=== PATIENT | female | born 2000 | race Caucasian/White ===

== ENCOUNTER 2020-06-26 18:03 | Emergency (ER) | payer BC, SELFPAY ==
--- NOTE | 2020-06-26 18:00 | DI.RAD_ITS ---
EXAM: XR ANKLE RT COMPLETE CLINICAL HISTORY: right ankle pain s/p fall. TECHNIQUE: 2D digital imaging was performed. COMPARISON: No exams were available for comparison FINDINGS: There is soft tissue swelling over the lateral malleolus but no evidence of fracture or widening of t he mortise. No osteochondral defect of the talar dome. Bone density is normal. No osseous lesions. IMPRESSION: Soft tissue swelling but no fracture evident. DATA REPOSITORY: RADIATION DOSE DELIVERED:
--- NOTE | 2020-06-26 18:10 | ED.GENADUL_ITS ---
Discharge Plan Disposition Patient Disposition: HOME Condition: Stable Discharge Details Clinical Impression: Right ankle sprain Primary Care Provider: Cynthia Ash ED Provider: Kale Woodson Home Meds and New Rx's Prescriptions: Continued sertraline 50 mg Tablet 50 mg PO DAILY RF: 0 Discharge Instructions Instructions: Ankle Sprain (ED) Additional Instructions: your xray did not show any broken bone if pain continues in a week follow up with your primary care provider you can take 1000mg tylenol and 600mg ibuprofen every 6 hours for pain as needed Medical Decision Making 20 yo female who denies chronic medical problems was running with her dog when she slipped on ice and rolled her right ankle and landed on buttock, no head trauma loc or vomit. HAs pain only over the right lateral malleolus with swelling. Has no pain over metatarsals can fully plantar flex but has pain with dorsiflexion, normal pulses and sensation and no pain in hip or knee. Suspect sprain but will xray to evaluate for fx. xray shows no acute findings, will treat as a sprain with crutches and ankle stabilizer, advised to f/u with pcp if pain continues in a week Differential Diagnosis Differential Diagnosis: sprain strain fx dislocation Imaging Data Radiologic Study: Attestation: I personally reviewed and interpreted this imaging study as follows: Imaging: X-Ray Radiologist's impression: IMPRESSION: Soft tissue swelling overlying the lateral malleolus consistent with a lateral ankle sprain. No evidence for acute fracture. HPI General Mode of arrival: ambulatory . Date/Time Provider Initiated Documentation: 06/26/20 18:09 . Limitations to Documentation: no limitations . Information obtained by: patient . History of Present Illness 20 year old F presents to the emergency department with the chief complaint of right ankle pain, described as moderate, Patient reports no radiation. Patient started experiencing this hour(s) (1) and it has been constant. Rest improves symptom(s), Movement worsens symptoms . Patient notes no other symptoms.. Patient did receive the following treatments prior to arrival, none Related Data Home Medications Medication Instructions Recorded Confirmed sertraline 50 mg PO DAILY 06/26/20 06/26/20 Allergies Allergy/AdvReac Type Severity Reaction Status Date / Time iodine Allergy Unverified 06/26/20 18:17 Review of Systems All systems reviewed & are unremarkable except as noted in HPI and below Constitutional Constitutional: Denies chills, Denies fever(s) and Denies weakness Cardiovascular Cardiovascular: Denies chest pain and Denies dyspnea Respiratory Respiratory: Denies cough and Denies dyspnea Gastrointestinal Gastrointestinal: Denies abdominal pain, Denies nausea and Denies vomiting Neurologic Neurologic: Denies weakness Psychiatric Psychiatric: Denies depression PFSH Social History Smoking/Tobacco Use Status: Never Smoking risk assessment performed?: Yes Alcohol Intake: current Alcohol Intake frequency: holidays/special occasions only Substance use type: does not use Do you feel safe at home: Yes Do you feel safe in your relationship?: Yes Exam Const General: no acute distress Orientation: alert HENMT Head: normal to inspection Ears: external ears normal General nose exam: external nose normal Mouth: moist mucous membranes Eyes General: appearance normal, both eyes and all related structures Neck Neck: normal visual inspection Resp Effort & Inspection: normal respiratory effort and able to speak in complete sentences Cardio Rate: regular rate Skin General skin exam: no rashes or lesions noted Neuro General: patient alert and patient oriented x3 Extrem General: capillary refill normal Psych Mental Status: mental status grossly normal
[2020-06-26 18:13] VITALS: BP 125/80; PULSE 96; RESP 18; TEMP 36.6; O2SAT 97
--- NOTE | 2020-06-26 18:28 | DI.VRAD_ITS ---
PROCEDURE INFORMATION: Exam: XR Right Ankle Exam date and time: 06/26/2020 6:11 PM Age: 20 years old Clinical indication: Pain; Ankle; Right TECHNIQUE: Imaging protocol: XR Right ankle. Views: 3 or more views. COMPARISON: No relevant prior studies available. FINDINGS: Bones/joints: No evidence for acute fracture. A small dorsal osteophyte is seen extending off of the navicular bone at the talonavicular joint. Soft tissues: Moderate soft tissue swelling is seen overlying the lateral malleolus. IMPRESSION: Soft tissue swelling overlying the lateral malleolus consistent with a lateral ankle sprain. No evidence for acute fracture. Dictated and Authenticated by: Celeste Strauss MD. Ordering:VARGAS Henley MD
== END 2020-06-26 18:50 | disposition home or self-care (01) ==
PROVIDERS: Emergency Provider Emergency Medicine; PCP Registered Nurse
DX: S93.491A Sprain of other ligament of right ankle, initial encounter (principal); W00.0XXA Fall on same level due to ice and snow, initial encounter; X50.9XXA Other and unspecified overexertion or strenuous movements or postures, initial encounter
CPT/HCPCS: 29515; 99283; 73610

== ENCOUNTER 2021-02-20 01:23 | Outpatient (CLI) | payer MEDICAID, SELFPAY ==
--- NOTE | 2021-02-20 | DI.US_ITS ---
Exam(s) US OB 1ST TRIMESTER EXAM: US OB 1ST TRIMESTER CLINICAL HISTORY: 1ST TRIMESTER,Z34.81. TECHNIQUE: First trimester obstetrical ultrasound was performed. COMPARISON: No exams were available for comparison FINDINGS: There is an intrauterine gestational sac which contains a yolk sac and viable pole which exhibi ts heart rate of 165 bpm. [place]-rump length measurement is 18 mm, corresponding to 8 weeks and 2 days gestational age. Gestational sac measurement is 8 weeks and 5 days There is no evidence of subchorionic hemorrhage. There is some echogenic mobile debris noted within the gestational sac. Maternal ovaries: Right ovary measures 4.1 x 3.2 x 2.9 cm. There is a corpus luteal cyst in the right ovary measuring 2.1 x 2.5 x 2.4 cm. This appears as a simple unilocular cyst. Left ovary measures 3.1 x 1.6 x 1.3 cm There is a mild amount of fluid in the cul-de-sac noted IMPRESSION:: Single viable intrauterine gestation which is approximately 18 weeks and 3 days gestati onal age by crown rump length measurement, implying JORDEN of September 28, 2021, 2020. There is no evidence of subchorionic hemorrhage. 2.5 x 2.4 cm corpus luteal cyst in the right ovary. Small amount of free fluid in the cul-de-sac is noted. DATA REPOSITORY:
== END 2021-02-20 01:43 ==
PROVIDERS: PCP Registered Nurse; Visit Provider Registered Nurse
DX: O34.81 Maternal care for other abnormalities of pelvic organs, first trimester (principal); N83.11 Corpus luteum cyst of right ovary; Z3A.08 8 weeks gestation of pregnancy
CPT/HCPCS: 76801

== ENCOUNTER 2021-03-06 03:06 | Outpatient (CLI) | payer MEDICAID, SELFPAY ==
[2021-03-06 15:31] LABS: Kit/Specimen SENT
[2021-03-06 15:41] LABS: Abs Immature Grans 0.05 10^3/uL (0.0-0.06); Absolute Basophil Count 0.06 10^3/uL (0.0-0.2); Absolute Eosinophil Count 0.14 10^3/uL (0.0-0.7); Absolute Monocyte Count 0.85 10^3/uL (0.1-0.8); Absolute Neutrophil Count 9.47 10^3/uL (1.2-6.7); Basophils % 0.5; Eosinophils % 1.1; HCT 36.8 % (36.0-46.0); HGB 12.3 g/dL (11.2-15.7); Immature Grans % 0.4; Lymphocytes % 17.7; MCH 30.4 pg (27.0-33.0); MCHC 33.4 % (32.0-36.0); MCV 90.9 fL (80-95); MPV 9.3 fL (8.0-11.0); Monocytes % 6.6; Neutrophils % 73.7; Nucleated RBC 0 %; Platelet Count 279 10^3/uL (130-400); RBC 4.05 10^6/uL (3.93-5.22); RDW 12.6 % (11.7-14.6); RDW-SD 41.2 fL; WBC 12.85 10^3/uL (4.4-10.8)
[2021-03-06 15:49] LABS: Absolute Lymphocyte Count 2.27 10^3/uL (1.2-3.4)
[2021-03-06 16:31] LABS: *AMPHETAMINES SCREEN URINE Negative (Negative); *BARBITURATES SCREEN URINE Negative (Negative); *BENZODIAZEPINES SCREEN URINE Negative (Negative); Cannabinoids THC Negative (Negative); Cocaine Screen,Urine Negative (Negative); METHADONE URINE SCREEN Negative (Negative); OPIATES URINE SCREEN Negative (Negative)
[2021-03-06 16:34] LABS: Tricyclic Antidepressants Negative (Negative)
[2021-03-06 16:43] LABS: TSH (W/Ref FT4) 2.12 uIU/mL (0.36-3.74)
[2021-03-08 09:47] LABS: Hepatitis B Surface Ag Negative (Negative)
[2021-03-08 10:16] LABS: Hepatitis C Ab w Rflx HCV PCR Negative (Negative)
[2021-03-08 10:27] LABS: HIV-1/2 Ag & Ab Screen Negative (Negative)
[2021-03-08 10:54] LABS: Rubella IgG Ab (UVM) Negative (See Note)
[2021-03-08 12:28] LABS: Varicella IgG Antibody Equivocal (See Note)
[2021-03-08 15:24] LABS: Chlamydia Result Negative (Negative); GC Result Negative (Negative)
[2021-03-08 15:28] LABS: Syphilis Total Ab w/Reflex Nonreactive (Nonreactive)
[2021-03-10 14:52] LABS: Buprenorphine Negative ng/mL (Cutoff: 5.0); Norbuprenorphine Negative ng/mL (Cutoff: 2.5)
[2021-03-17 15:36] LABS: Result Summary NEGATIVE; Specimen WB Whole Blood
== END 2021-03-06 03:07 | disposition home or self-care (01) ==
LOC: LBO 03:06
PROVIDERS: PCP Registered Nurse; Visit Provider Advanced Practice Midwife
DX: Z34.91 Encounter for supervision of normal pregnancy, unspecified, first trimester (principal); Z11.4 Encounter for screening for human immunodeficiency virus [HIV]; Z11.59 Encounter for screening for other viral diseases; Z36.89 Encounter for other specified antenatal screening; Z01.84 Encounter for antibody response examination; Z3A.10 10 weeks gestation of pregnancy; Z11.3 Encounter for screening for infections with a predominantly sexual mode of transmission
CPT/HCPCS: 36415; 80307; 86787; 86803; 86850; 86900; 86901; 87340; 87389; 87491; 87591; 81220; 84443; 85025; 86762; 86780; 87086

== ENCOUNTER 2021-06-28 02:21 | Outpatient (CLI) | payer MEDICAID, SELFPAY ==
[2021-06-28 11:24] LABS: HCT 34.5 % (36.0-46.0); HGB 10.9 g/dL (11.2-15.7); MCH 30.2 pg (27.0-33.0); MCHC 31.6 % (32.0-36.0); MCV 95.6 fL (80-95); MPV 9.6 fL (8.0-11.0); Platelet Count 268 10^3/uL (130-400); RBC 3.61 10^6/uL (3.93-5.22); RDW 12.3 % (11.7-14.6); RDW-SD 42.8 fL; WBC 11.98 10^3/uL (4.4-10.8)
[2021-06-28 11:30] LABS: Glucose,1 Hr (Glucola) 106 mg/dL (80-140)
== END 2021-06-28 02:22 | disposition home or self-care (01) ==
LOC: LBO 02:22
PROVIDERS: Advanced Practice Midwife; PCP Registered Nurse; Visit Provider Advanced Practice Midwife
DX: Z34.92 Encounter for supervision of normal pregnancy, unspecified, second trimester
CPT/HCPCS: 36415; 82950; 85027

== ENCOUNTER 2021-08-30 11:31 | Outpatient (REF) | payer MEDICAID, SELFPAY ==
[2021-08-30 13:21] LABS: *AMPHETAMINES SCREEN URINE Negative (Negative); *BARBITURATES SCREEN URINE Negative (Negative); *BENZODIAZEPINES SCREEN URINE Negative (Negative); Cannabinoids THC Negative (Negative); Cocaine Screen,Urine Negative (Negative); METHADONE URINE SCREEN Negative (Negative); OPIATES URINE SCREEN Negative (Negative)
[2021-08-30 13:25] LABS: Tricyclic Antidepressants Negative (Negative)
[2021-09-05 08:46] LABS: Buprenorphine Negative ng/mL (Cutoff: 5.0)
== END 2021-08-30 11:32 | disposition home or self-care (01) ==
LOC: LBN 11:31
PROVIDERS: PCP Registered Nurse; Visit Provider Advanced Practice Midwife
DX: Z34.93 Encounter for supervision of normal pregnancy, unspecified, third trimester (principal)
CPT/HCPCS: 80307; 87081

== ENCOUNTER 2021-10-05 07:46 | Outpatient (CLI) | payer MEDICAID, SELFPAY ==
[2021-10-05 11:21] VITALS: BP 131/82; PULSE 85; TEMP 36.6
--- NOTE | 2021-10-05 12:08 | W.OBNST ---
Date of service: 10/05/21 Time of Service: 12:08 NST Evaluation Reason for NST Reasons for Nonstress Test: POSTDATES Gestational Age Gestational Age in Weeks and Days: 41 Weeks and 0Days Test and Monitor Explained Test/Monitor Explained: Test Explained, Monitor Explained and Patient Verbalized Understanding Vital Signs Blood Pressure: 131/82 Pulse: 85 Temperature: 97.9 F NST Information Date on Monitor: 10/05/21 Time on Monitor: 11:18 NST Interventions: PO Hydration NST Evaluation Patient States Movement: Present FHR Baseline: 130 Variability: Moderate 6-25 bpm Accelerations: 15x15 Decelerations: None NST Results: Reactive Note LIDIA (by Destiney nunes) Results of LIDIA: 9.6 NST Note Note: Post dates . Jessica prefers no induction of labor until 42 weeks. Risks of post dates reviewed. RTO 10/09 for NST. LIDIA performed at bedside by Destiney Nunes. LIDIA 9.6 NST Reviewed and Verified by: Shanel Clifton
[2021-10-05 12:10] VITALS: BP 131/82; PULSE 85; TEMP 36.6
== END 2021-10-05 11:55 | disposition home or self-care (01) ==
LOC: BCD 07:49 → OBS 11:14
PROVIDERS: PCP Registered Nurse; Visit Provider Advanced Practice Midwife
DX: O48.0 Post-term pregnancy (principal); Z3A.41 41 weeks gestation of pregnancy
CPT/HCPCS: 59025

== ENCOUNTER 2021-10-09 05:33 | Outpatient (CLI) | payer MEDICAID, SELFPAY ==
[2021-10-09 11:34] VITALS: BP 133/81; PULSE 81; TEMP 36.5
--- NOTE | 2021-10-09 12:06 | W.OBNST ---
Date of service: 10/09/21 Time of Service: 12:06 NST Evaluation Reason for NST Reasons for Nonstress Test: POSTDATES Gestational Age Gestational Age in Weeks and Days: 41 Weeks and 4Days Test and Monitor Explained Test/Monitor Explained: Test Explained, Monitor Explained and Patient Verbalized Understanding Vital Signs Blood Pressure: 133/81 Pulse: 81 Temperature: 97.7 F NST Information Date on Monitor: 10/09/21 Time on Monitor: 11:05 Date off Monitor: 10/09/21 Time off Monitor: 11:27 Total Time on Monitor: 22 NST Interventions: PO Hydration and Other Contraction Frequency: Occasional NST Evaluation Patient States Movement: Present FHR Baseline: 120 Variability: Moderate 6-25 bpm Accelerations: 15x15 Decelerations: None NST Results: Reactive Note NST Note Note: Jessica is having irregular contractions. SVE 3-4 cms/-1/80%. Signs of labor reviewed. NST Reviewed and Verified by: Shanel Clifton
[2021-10-09 12:07] VITALS: BP 133/81; PULSE 81; TEMP 36.5
== END 2021-10-09 11:35 ==
LOC: BCD 05:36 → OBS 11:29
PROVIDERS: PCP Registered Nurse; Visit Provider Advanced Practice Midwife
DX: O48.0 Post-term pregnancy (principal); Z3A.41 41 weeks gestation of pregnancy
CPT/HCPCS: 59025

== ENCOUNTER 2021-10-11 19:32 | Inpatient (IN) | payer MEDICAID, SELFPAY ==
[2021-10-11 20:47] VITALS: BP 139/78; PULSE 82; PULSE 83; PULSE 84; RESP 18; TEMP 36.9; O2SAT 98
[2021-10-11 20:48] VITALS: PULSE 85; O2SAT 98
[2021-10-11 21:01] LABS: Source Nasal/Nares
--- NOTE | 2021-10-11 21:31 | HPE_ITS ---
Date of service: 10/11/21 Time of Service: 21:31 Assessment and Plan Assessment and plan (1) Encounter for induction of labor: Status: Acute Assessment and plan: A: 21 yo G1 @ 42 wks Scheduled IOL, favorable cervix Pelvis adequate for EFW of 3900 gms Category 1 tracing GBS+, increased risk for SD and PPH (primpara, post dates, TWG >40 lb, IOL) R&B discussed in detail for ATB prophylaxis and IV access, pt declines both P: Options for IOL reviewed, pt consents to oral misoprostel Will give miso 50 mcg PO now, observe for labor through the night Admission labs, intermittent auscultation after 2 hr tracing Reassess need for AROM or pitocin infusion in the morning Comfort measures as pt requests Pt aware of 48 hr observation of due to GBS status Dr. Fleming available for consult as needed (2) Post-dates : Status: Acute (3) Group B Streptococcus carrier, +RV culture, currently : Status: Acute OB-HPI Labor/Delivery History of Present Illness Reason for Visit: Postdates Chief Complaint: Scheduled Induction of Labor Indication for Induction: Post Date. JORDEN Calculator Estimated Delivery Date Method Current WG Current Estimate 09/28/21 LMP (Certain) 41w 6d Other Estimates 09/28/21 Ultrasound #1 41w 6d History of Present Expected Delivery Route/Plan - CNM FOB/boyfriend - Kale Kam (age 32, his first child) Does not want to know gender, no circ if male Rubella Non-Immune, Varicella Equivocal, offer vaccinations team is FOB (unvaccinated), pt's mother Callie (vaccinated) and clinical radiologist (either Diantha or Funmi) GBS POSITIVE - PCN prophylaxis in labor recommended, pt DECLINES prophylaxis Declines vitamin K injection for baby Prefers to have cord cut only after placenta is delivered. Specific Issues/Plan 1. Pt and her mother are fully vaccinated, FOB plans for vaccination soon 2. Pt's sister born with transposition of great vessels, surgical correction in [place] 2a. [place] [facility] [place], level 2 sono & MFM consult; done 05/10, nml results 3. Desires [place] and CF screening, drawn 03/06. Desires AFP @ 16-20 wks 3a. [place] result low prob x3, CF screen is negative 4. Hx depression, taking sertraline 50 mg daily 5. Pt's diet is vegan, protein sources discussed, advised to limit starch and grain intake 6. Rubella Non-Immune, Varicella equivocal, discussed, accepts vaccines 7. Conceived with IUD 3-hr.(Corina?) - possible expulsion , schedule x-ray after delivery 8. Desires LC Consult, ordered 08/24/21- met with Paul 09/22/21 Assessment: History Reviewed & Current Informed Consent Informed Consent: Induction of Labor, Risk,Benefits,Alternatives Discussed and Other (Pt declines consent for antibiotics during labor for GBS prophylaxis, pt declines IV access unless there is an emergency.) Review of Systems All systems reviewed & are unremarkable except as noted in HPI and below Constitutional Constitutional: Reports system reviewed and no additional complaints, except as documented Cardiovascular Cardiovascular: Reports system reviewed and no additional complaints, except as documented Respiratory Respiratory: Reports system reviewed and no additional complaints, except as documented Gastrointestinal Gastrointestinal: Reports system reviewed and no additional complaints, except as documented Genitourinary Genitourinary: Reports system reviewed and no additional complaints, except as documented Musculoskeletal Musculoskeletal: Reports system reviewed and no additional complaints, except as documented Integumentary/Breasts Skin/Breast: Reports system reviewed and no additional complaints, except as documented Psychiatric Psychiatric: Reports system reviewed and no additional complaints, except as documented PFSH All Active Problems (Updated 10/11/21 @ 19:35 by Ragini Harper) Encounter for induction of labor (Acute) Post-dates (Acute) Group B Streptococcus carrier, +RV culture, currently (Acute) Rubella non-immune status, antepartum (Acute) Maternal varicella, non-immune (Acute) Medical History (Updated 10/11/21 @ 19:35 by Ragini Harper) Family history of transposition of great vessels Social History Smoking/Tobacco Use Status: Never Smoking risk assessment performed?: Yes Alcohol Intake: current Alcohol Intake frequency: holidays/special occasions only Substance use type: does not use Do you feel safe at home: Yes Do you feel safe in your relationship?: Yes History History 1 Para 0 Hx # Term Pregnancies 0 Multiple births 0 Hx # Pregnancies 0 Ectopic pregnancies 0 AB induced 0 Hx Number of Living Children 0 AB spontaneous 0 Meds Allergies and Home Medications Allergies Allergy/AdvReac Type Severity Reaction Status Date / Time iodine Allergy Intermediate hives Unverified 09/29/21 10:50 Latex, Natural Rubber Allergy Intermediate itching Verified 09/29/21 10:50 and swelling Home Medications Medication Instructions Recorded Confirmed Type sertraline 50 mg tablet 50 mg PO DAILY 06/26/20 08/30/21 History vit no.95-ferrous 1 tab PO DAILY 02/24/21 08/30/21 History fumarate 28 mg-folic acid 800 mcg tablet Blood Builder 1 tab PO DAILY #30 tab 07/17/21 08/30/21 Rx Exam Physical Exam Vital signs: Temp Pulse Resp BP Pulse Ox 98.4 F 85 18 139/78 98 10/11/21 20:47 10/11/21 20:48 10/11/21 20:47 10/11/21 20:47 10/11/21 20:48 Vital Signs Reviewed: Yes Constitutional Constitutional: no acute distress, average body habitus and cooperative Detailed Labor and Delivery Exam Dilation: 4.5 Effacement (%): 90 station: -2 Position: OP Cervix position: anterior Consistency: soft KEENE Score(Cervical Ripeness Score): 10 Amniotic Membrane Status: Intact Monitor Mode: External Contraction Frequency(min): 0 Fetus A Heart Rate Baseline: 135 Monitor Accelerations: 15 X 15 Monitor Decelerations: None Variability: Moderate (6-25 BPM) Presentation: Cephalic Categories: Category I Est. Weight: 8 lb 9.568 oz Est. Weight: 3900 gms HEENT Exam HEENT Exam: Normal Neck Exam Neck Exam: Normal Chest/Brest/Axilla Exam Chest Exam: Normal Breast Exam Breast Exam: Not Done Respiratory Exam Respiratory Exam: Normal Cardiovascular Exam Cardiovascular Exam: Normal Abdominal Exam Abdominal Exam: Normal (Gravid, nontender) Rectal Exam Rectal Exam: Normal Exam Exam: Normal Extremities Exam Extremities Exam: Normal Back/Spine/Pelvis Exam Back Exam: Normal Pelvis Adequate: Yes Skin Exam Skin Exam: Normal Neurological Exam Neurological Exam: Normal Psychiatric Exam Psychiatric Exam: Normal Results Results Group Beta Strep: Positive Blood Type: A+ Rubella Status: Nonimmune Varicella Immunity: Equivocal Risk Assessment Risk for Shoulder Dystocia Historical/Initial OB: NEGATIVE FOR: Pelvic Abnormality, Pre- BMI>30, Previous Shoulder Dystocia or Previous Macrosomia 40 Weeks: POSTIVE FOR: Maternal Weight Gain >40lb and Post Dates; NEGATIVE FOR: EFW> 4500 gms Increased Risk?: Yes Delivery Plan @ 36wks: mild risk due to weight gain. KH Delivery Plan @ 40 wks: spont labor, Risk for Pre-Eclampsia Date Initiated/Initials: not indicated. JK Yes, if one or more: NEGATIVE FOR: Hx Pre-E/Gest HTN, Chronic HTN, Multiple Gestation, Pre-gestational DM, Renal Disease, Systemic Lupus or APA Syndrome Yes, if 2 or more: POSITIVE FOR: Nulliparity; NEGATIVE FOR: Age>= 35 yrs, >10yr btwn pregnancies, BMI>30, ethinicty, Mother/Sister w/ Pre-E or Previous IUGR Risk for Post- Hemorrhage Initial: NEGATIVE FOR: Multiple Gestation, Previous PPH, Known Clotting Deficiency, Grand Multiparity or Anticoagulation At Risk?: Yes (due to induction of labor) Counseled re: Active Management: Yes (Pt does not want an IV during labor, counseled IV is needed if bleeding) Risks Reviewed Risks Reviewed Upon Admission: Yes
[2021-10-11] MEDS: miSOPROStol 50 MCG TAB PO (21:40)
[2021-10-11 21:42] VITALS: BP 127/78; PULSE 75; PULSE 80; PULSE 82; RESP 18; TEMP 36.8; O2SAT 98
[2021-10-11 21:51] LABS: COVID-19 PCR Negative (Negative)
[2021-10-11 22:02] LABS: HCT 40.2 % (36.0-46.0); HGB 13.1 g/dL (11.2-15.7); MCH 30.8 pg (27.0-33.0); MCHC 32.6 % (32.0-36.0); MCV 94.6 fL (80-95); MPV 10.5 fL (8.0-11.0); Platelet Count 229 10^3/uL (130-400); RBC 4.25 10^6/uL (3.93-5.22); RDW 14.5 % (11.7-14.6); RDW-SD 50.4 fL; WBC 10.36 10^3/uL (4.4-10.8)
[2021-10-11 23:40] VITALS: BP 130/76; PULSE 75; PULSE 76; PULSE 78; RESP 18; TEMP 36.8; O2SAT 98
[2021-10-11 23:41] VITALS: PULSE 77; O2SAT 99
[2021-10-12] VITALS (19 sets, daily range): BP systolic 112–149; BP diastolic 63–91; PULSE 83–125; RESP 16–20; TEMP 36.3–37.1; O2SAT 96–98
--- NOTE | 2021-10-12 06:38 | W.PM.OBNL1 ---
Date of service: 10/12/21 Time of Service: 06:38 Informed Consent Informed Consent: Risk,Benefits,Alternatives Discussed and Other (Pt declines consent for antibiotics during labor for GBS prophylaxis, pt declines IV access unless there is an emergency.) Contractions Monitor Mode: Palpation Contraction Frequency(min): q3 Contraction Duration(sec): 70-90 Intensity: Moderate/Strong Fetus A Monitor: Doppler Heart Rate Baseline: 125 Categories: Category I (EFM tracing @ 0330 after SROM is category 1) FHR Rhythm: Regular Characteristics: Normal Accelerations: Present Decelerations: None Amniotic Membrane Status: Ruptured Rupture Method: Spontaneous Amniotic Fluid: Clear Date of Membrane Rupture: 10/12/21 Time of Membrane Rupture: 03:15 Assessment and Plan Assessment and plan (1) Encounter for induction of labor: Status: Acute Assessment and plan: A: postdates primipara Miso 50 mcg PO x1 with subsequent SROM & active labor Pt declining GBS prophylaxis Pelvic exam deferred, FHT reassuring per doptone EFM tracing done at 0300 was category 1 P: Expectant management Anticipate Objective Temp Pulse Resp BP Pulse Ox 97.3 F L 104 H 18 129/86 98 10/12/21 06:23 10/12/21 05:13 10/12/21 05:13 10/12/21 05:13 10/12/21 05:13 Laboratory Results WBC 10.36 10^3/uL (4.4-10.8) 10/11/21 21:53 RBC 4.25 10^6/uL (3.93-5.22) 10/11/21 21:53 Hgb 13.1 g/dL (11.2-15.7) 10/11/21 21:53 Hct 40.2 % (36.0-46.0) 10/11/21 21:53 MCV 94.6 fL (80-95) 10/11/21 21:53 MCH 30.8 pg (27.0-33.0) 10/11/21 21:53 MCHC 32.6 % (32.0-36.0) 10/11/21 21:53 RDW 14.5 % (11.7-14.6) 10/11/21 21:53 Plt Count 229 10^3/uL (130-400) 10/11/21 21:53 MPV 10.5 fL (8.0-11.0) 10/11/21 21:53 COVID-19 Source Nasal/Nares 10/11/21 20:45 SARS-CoV-2 (PCR) Negative (Negative) 10/11/21 20:45 Patient ABO/Rh A Positive 10/11/21 21:53 Antibody Screen NEGATIVE 10/11/21 21:53 Vital Signs Reviewed: Yes Objective Narrative Objective Narrative: Pt admitted accompanied by FOB Pt's mother and heavy equipment sales manager arrived at 0500 Gross SROM of clear fluid observed by RN at 0315 Contractions are pain, strong, every 3 minutes Emesis x1 @ 0600, afebrile, normotensive Intermittent auscultation FHT are reassuring Pt moving around the room, currently H&K on floor mat, using cub Subjective Interval history since last seen: Able to sleep after taking misoprostel for a couple of hours, woke to void at 0315 and noticed increased watery discharge, contractions have increased in strength and pain since then.
[2021-10-12] MEDS: Oxytocin 10 UNITS/ML VIAL IM (08:35)
[2021-10-12] MEDS: Benzocaine 20% 60 ML CAN (09:00)
--- NOTE | 2021-10-12 09:36 | OBVDS_ITS ---
Date of service: 10/12/21 Time of Service: 09:36 OB Labor/ Delivery Information Baby A Delivery Delivery Method: Spontaneaous Presentation: Vertex Cephalic Position: Vertex Vertex Position: Left Occipital Anterior Breech Position: N/A Cord Description-Baby A: 3 Vessels Cord Description Comment: marginal cord insertion noted Amniotic Fluid: Clear Estimated Blood Loss: 350 Delivery Outcome: Liveborn Infant Transferred: Remains with Mother Note: Pt remained H&K on floor mat, shortly began involuntary bearing down efforts, requested to get into the tub for comfort and delivery, declined vaginal exam prior to entering the tub. Water temp was 98 degrees, FHT 125-135 per intermittent auscultation, visible amniotic fluid draining from introitus remained clear, 2nd stage huddle completed. Pt adopted a kneeling position in the tub and presently brought the vtx to , FHT's remained 125-135, pt assisted into upright squatting position in the tub and of a vigorous male accomplished, attempted intact perineum, shoulders delivered easily, baby immediately to mother's arms. Crandall HR >100 and spontaneous respirations though color was dusky, blowby 02 per mask placed above baby's face briefly with immediate pinking in color. Pitocin 10 units IM given with pt consent, katie placenta delivered intact with 3VC, fundus palpably firm below umbilicus, bleeding was minimal to moderate. Cord was clamped and cut by FOB, baby handed to grandmother and pt was assisted to bed. Inspection of perineum revealed 2nd laceration without extension, repaired using topical Hurricaine spray and 3.0 Vicryl. Cord blood collected, fundus remains firm below umbilicus, minimal rubra, apgars 7/9, weight 4080 gms. Providers Nurse Oral Pathologist: Ragini Harper Nurse: Kacey Kam Nurse: Hernandez Henao Labor/Delivery Information Number of Babies in Womb: 1 Steroids Given: None Reason Steroids Not Administered: N/A Group Beta Strep: Positive Antibiotics Administered: No Rubella Status: Nonimmune Blood Type: A+ Varicella Immunity: Equivocal Medication in Delivery: oxytocin 10u IM Maternal Complications: None Shoulder Dystocia: No Stages of Labor Onset of Labor Date: 10/12/21 Complete Dilatation Date: 10/12/21 Complete Dilatation Time: 07:30 ROM Baby A: 10/12/21 ROM Baby A: 03:15 ROM Total Time- Baby A: [id number] Delivery Date-Baby A: 10/12/21 Delivery Time-Baby A: 08:29 Labor Stage 2 Duration: 59 minutes Placenta Delivery Date-Baby A: 10/12/21 Placenta Delivery Time-Baby A: 08:45 Labor-Stage 3 Duration: 16 minutes Placenta Cultured: No Placenta Status: Delivered Baby A Infant Gender: Male Gestational Status: Postterm (>42 wks) Gestational Age in Weeks/Days: 42 Weeks and 0 Days weight: 8 lb 15.918 oz Weight Comment: 4080 gms Score-1 Minute Interval(Baby A) Heart Rate-1 minute: 100 BPM or Greater Respiratory Effort- 1 minute: Slow Respiration/Weak Cry Muscle Tone-1 minute: Active Movement Reflex Response-1 minute: Prompt Response Color-1 minute: Pallor or Cyanosis Total Score-1 minute: 7 Score-5 Minute Interval(Baby A) Heart Rate- 5 minute: 100 BPM or Greater Respiratory Effort-5 minute: Spontaneous/Strong Cry Muscle Tone-5 minute: Active Movement Reflex Response-5 minute: Prompt Response Color-5 minute: Bluish Hands or Feet Total Score- 5 minute: 9 Procedure Procedures: Cord Blood Collection Interventions Repair of Laceration Type: Perineal, Laceration Extension: Second Degree. Sponge Count Correct: No Sponges Placed in Vagina, Sharp Count Correct: Yes. Laceration Repair Note: topical spray anesthetic, 3.0 Vicryl
[2021-10-12] MEDS: Dibucaine 1% 28 GM TUBE TP (17:54)
[2021-10-12] MEDS: Hamamelis Leaf/Glycerin 100 EACH BOX PR (17:56)
[2021-10-12] MEDS: Sertraline 50 MG TAB PO (20:09)
[2021-10-13 07:45] VITALS: BP 117/75; PULSE 82; RESP 16; TEMP 36.5; O2SAT 97
[2021-10-13 13:30] VITALS: BP 112/75; PULSE 101; RESP 16; TEMP 36.6; O2SAT 97
--- NOTE | 2021-10-13 14:06 | W.PM.OBPNV1 ---
Date of service: 10/13/21 Time of Service: 14:06 Assessment and Plan Assessment and plan (1) Term delivered: Status: Acute Assessment and plan: A: nml PPD#1 off to a good start P: Planning for discharge tomorrow No sx of GBS concerns Plans for NFP/fertility awareness Will f/up @ 2 & 6 wks Offer MMR and Varicella vaccines prior to discharge Subjective Subjective Patient comments: No complaints, Pain well controlled, Tolerating diet and Flatus present Patient's Mood: happy, tired baby status: Doing well, Nursing well, Rooming in and Strong Bonding Observed feeding status: Exclusively breast feeding Exam Physical Exam Vital signs: Temp Pulse Resp BP Pulse Ox 97.9 F 101 H 16 112/75 97 10/13/21 13:30 10/13/21 13:30 10/13/21 13:30 10/13/21 13:30 10/13/21 13:30 Vital Signs Reviewed: Yes Constitutional Constitutional: no acute distress HEENT Exam HEENT Exam: Normal Neck Exam Neck Exam: Normal Breast Exam Bilateral: Breast Exam: Normal and Soft Nipple Exam: Normal and Uninjured Respiratory Exam Respiratory Exam: Normal Cardiovascular Exam Cardiovascular Exam: Normal Abdominal Exam Abdomen: Other Comments: soft, nontender Fundal Exam Fundus: Below Umbilicus and Firm Rectal Exam Rectal Exam: Normal Exam Perineum: Normal and Repair Intact Extremities Exam Extremity Exam: Normal, Full ROM, Normal Capillary Refill and Warm to Touch Back/Spine/Pelvis Exam Back Exam: Normal Skin Exam Skin Exam: Normal Neurological Exam Neurological Exam: Normal Psychiatric Exam Psychiatric Exam: Normal Results Hemoglobin/Hematocrit: Hgb 13.1 g/dL (11.2-15.7) 10/11/21 21:53 Hct 40.2 % (36.0-46.0) 10/11/21 21:53
[2021-10-13] MEDS: Sertraline 50 MG TAB PO (20:27)
[2021-10-13 20:35] VITALS: BP 115/72; PULSE 91; RESP 16; TEMP 36.8
[2021-10-14 09:20] VITALS: BP 108/75; PULSE 107; RESP 16; TEMP 36.8; O2SAT 98
--- NOTE | 2021-10-14 09:40 | OBPPV_ITS ---
Date of service: 10/14/21 Time of Service: 09:40 Assessment and Plan Assessment and plan (1) Term delivered: Status: Acute Assessment and plan: A: nml PPD#2 Pt desires discharge today Has received LC support P: No sx of GBS concerns Plans for NFP/fertility awareness Will f/up @ 2 & 6 wks MMR and Varicella vaccines given this morning Written instructions reviewed and given to pt Subjective Subjective Patient comments: No complaints, Pain well controlled, Tolerating diet and Flatus present Patient's Mood: good [place] baby status: Doing well, Nursing well, Rooming in and Strong Bonding Observed feeding status: Exclusively breast feeding Exam Physical Exam Vital signs: Temp Pulse Resp BP Pulse Ox 98.3 F 91 H 16 115/72 97 10/13/21 20:35 10/13/21 20:35 10/13/21 20:35 10/13/21 20:35 10/13/21 13:30 Vital Signs Reviewed: Yes Constitutional Constitutional: no acute distress HEENT Exam HEENT Exam: Normal Neck Exam Neck Exam: Normal Breast Exam Bilateral: Breast Exam: Normal and Soft Respiratory Exam Respiratory Exam: Normal Cardiovascular Exam Cardiovascular Exam: Normal Abdominal Exam Abdomen: Other Fundal Exam Fundus: Below Umbilicus and Firm Rectal Exam Rectal Exam: Normal Exam Perineum: Normal and Repair Intact Extremities Exam Extremity Exam: Normal, Full ROM, Normal Capillary Refill and Warm to Touch Back/Spine/Pelvis Exam Back Exam: Normal Skin Exam Skin Exam: Normal Neurological Exam Neurological Exam: Normal Psychiatric Exam Psychiatric Exam: Normal
--- NOTE | 2021-10-14 09:43 | W.PM.OBDISCH ---
Date of service: 10/14/21 Time of Service: 09:43 DS: Diagnosis Discharge Diagnosis (1) Term delivered: Status: Acute Discharge Plan Disposition Patient Disposition: HOME Condition: Good Discharge Details Reason For Visit: Postdates Admit Date/Time: 10/11/21 19:32 Admit Provider: Ragini Harper Attending Provider: Ragini Harper Primary Care Provider: [facility] Course Hospital Course: Induction for postdates, without complications, discharge at 48 hrs PP Home Meds and New Rx's Prescriptions: No Action Blood Builder 1 tab PO DAILY Qty: 30 0RF Rx Instructions: 1 tab PO daily; PNV cmb#95-ferrous fumarate-FA 28 mg iron- 800 mcg tablet 1 tab PO DAILY 0RF sertraline 50 mg Tablet 50 mg PO DAILY 0RF Discharge Instructions Additional Instructions: Please keep your 2 and 6 wk appointments. The 2 week appointment can be done by telehealth if you prefer, just call the office to request this service. Expect the 2nd Varicella vaccine at your 6 week appointment. Call for any questions or concerns. Stand Alone Forms: BC Instructions, BC Post Vaginal Deliver Activity:: Activity as Tolerated Equipment/Supplies:: No Equipment Needed Diet:: Normal Diet Discharge Orders Discharge Orders: Discharge Order (Routine); Ordered 10/14/21 Ordered By: Ragini Harper OB:DS Summary Summary Vaginal Delivery Method: Spontaneaous Laceration Description: Perineal Laceration Extension: Second Degree Contraception Discussed Contraception Discussed: Yes Contraceptive Plan: Not planning to use, Infant Gender-Baby A: Male weight: 8 lb 15.918 oz Status at Discharge Functional status at discharge: independent ambulation Overall status at discharge: patient is progressing back to baseline Mental Status: mental status grossly normal Speech and Movement: speech and movement normal and speech clear Mood: congruent mood Affect: normal affect Exam Physical Exam Vital signs: Temp Pulse Resp BP Pulse Ox 98.3 F 91 H 16 115/72 97 10/13/21 20:35 10/13/21 20:35 10/13/21 20:35 10/13/21 20:35 10/13/21 13:30 Constitutional Constitutional: no acute distress HEENT Exam HEENT Exam: Normal Neck Exam Neck Exam: Normal Breast Exam Bilateral: Breast Exam: Normal and Soft Respiratory Exam Respiratory Exam: Normal Cardiovascular Exam Cardiovascular Exam: Normal Abdominal Exam Abdomen: Other Fundal Exam Fundus: Below Umbilicus and Firm Rectal Exam Rectal Exam: Normal Exam Perineum: Normal and Repair Intact Extremities Exam Extremity Exam: Normal, Full ROM, Normal Capillary Refill and Warm to Touch Back/Spine/Pelvis Exam Back Exam: Normal Skin Exam Skin Exam: Normal Neurological Exam Neurological Exam: Normal Psychiatric Exam Psychiatric Exam: Normal PFSH All Active Problems (Updated 10/13/21 @ 14:08 by Ragini Harper) Term delivered (Acute) Rubella non-immune status, antepartum (Acute) Maternal varicella, non-immune (Acute) Medical History (Updated 10/13/21 @ 14:08 by Ragini Harper) Encounter for induction of labor Family history of transposition of great vessels Group B Streptococcus carrier, +RV culture, currently Post-dates Social History Smoking/Tobacco Use Status: Never Smoking risk assessment performed?: Yes Alcohol Intake: current Alcohol Intake frequency: holidays/special occasions only Substance use type: does not use Do you feel safe at home: Yes Do you feel safe in your relationship?: Yes History History 1 Para 0 Hx # Term Pregnancies 0 Multiple births 0 Hx # Pregnancies 0 Ectopic pregnancies 0 AB induced 0 Hx Number of Living Children 0 AB spontaneous 0 DS: Data Vitals/I&O Vitals and I&O: Vital Signs Temperature 98.3 F 10/13/21 20:35 Pulse 91 H 10/13/21 20:35 Pulse Rhythm Regular 10/13/21 20:35 Respiratory Rate 16 10/13/21 20:35 Respiratory Depth Normal 10/11/21 20:48 Blood Pressure 115/72 10/13/21 20:35 Blood Pressure Mean 86 10/13/21 20:35 Pulse Oximetry 97 10/13/21 13:30 Pain Level 0 10/13/21 20:35 Comment 10/12/21 18:10
[2021-10-14] MEDS: Varicella Virus Vaccine (Live) 0.5 ML SC (09:53)
[2021-10-14] MEDS: Measles, Mumps, & Rubella Vaccine 0.5 ML VIAL SC (09:59)
== END 2021-10-14 12:20 | disposition home or self-care (01) | DRG 807 ==
PROVIDERS: Admitting Provider Advanced Practice Midwife; PCP Registered Nurse; Visit Provider Advanced Practice Midwife
DX: O48.0 Post-term pregnancy (principal); Z37.0 Single live birth; O99.824 Streptococcus B carrier state complicating childbirth; Z3A.42 42 weeks gestation of pregnancy; O70.1 Second degree perineal laceration during delivery
CPT/HCPCS: 36415; 85027; 86850; 86900; 86901; 87635; J2590

== ENCOUNTER 2024-04-15 02:32 | Outpatient (CLI) | payer MEDICAID, SELFPAY ==
[2024-04-15 14:59] LABS: Panorama Kit Sent via Fed Ex
[2024-04-15 15:17] LABS: Abs Immature Grans 0.07 10^3/uL (0.0-0.06); Absolute Basophil Count 0.06 10^3/uL (0.0-0.2); Absolute Eosinophil Count 0.15 10^3/uL (0.0-0.7); Absolute Lymphocyte Count 2.09 10^3/uL (1.2-3.4); Absolute Monocyte Count 0.57 10^3/uL (0.1-0.8); Basophils % 0.6 %; Eosinophils % 1.6 %; HCT 39.4 % (36.0-46.0); HGB 13.3 g/dL (11.2-15.7); Immature Grans % 0.8 %; Lymphocytes % 22.6 %; MCH 30.9 pg (27.0-33.0); MCHC 33.8 % (32.0-36.0); MCV 91 fL (80-95); MPV 9.4 fL (8.0-11.0); Monocytes % 6.2 %; Neutrophils % 68.2 %; Platelet Count 278 10^3/uL (130-400); RBC 4.31 10^6/uL (3.93-5.22); RDW 12.1 % (11.7-14.6); RDW-SD 40.8 fL; WBC 9.24 10^3/uL (4.4-10.8)
[2024-04-15 16:19] LABS: TSH (W/Ref FT4) 1.34 uIU/mL (0.36-3.74)
[2024-04-16 21:29] LABS: Hepatitis B Surface Ag Negative (Negative)
[2024-04-16 21:56] LABS: Hepatitis C Ab w Rflx HCV PCR Negative (Negative)
[2024-04-16 22:15] LABS: HIV-1/2 Ag & Ab Screen Negative (Negative)
[2024-04-17 11:35] LABS: Rubella IgG Ab (UVM) Positive (See Note); Varicella IgG Antibody Positive (See Note)
[2024-04-19 14:55] LABS: Syphilis IgG w/Reflex Nonreactive (Nonreactive)
== END 2024-04-15 02:33 | disposition home or self-care (01) ==
LOC: LBO 02:32
PROVIDERS: PCP Registered Nurse; Visit Provider Advanced Practice Midwife
DX: Z34.91 Encounter for supervision of normal pregnancy, unspecified, first trimester (principal)
CPT/HCPCS: 36415; 86787; 86803; 86850; 86900; 86901; 87340; 87389; 84443; 85025; 86762; 86780

== ENCOUNTER 2024-04-15 14:48 | Outpatient (REF) | payer MEDICAID, SELFPAY ==
--- NOTE | 2024-04-15 14:45 | PAPFT_PTH ---
PATIENT: Jessica Arguelles LOC: [facility] U#:[id number] AGE/SX: 24/F ROOM: RE04/15/[address]: Ragini Harper CNM : 2000 BED: DIS: 04/15/2024 SPEC #: [id number] RECD: 04/15/24 18:21 STATUS: JEREMIAH REQ #: [id number] JUAN MANUEL: 04/15/24 14:[address]: Ragini Harper DEPT: [facility] Cytology RECD BY: Carlyn Byrne ENTERED: 04/15/24 18:22 SP TYPE: PAPFT OTHR DR: Treasure Aguilera Tissues: 1 - CX/ENDOCX FOR PAP SMEARS Procedures: PAP THIN PREP/UVM Screening Comments: [id number] (CHLAMYDIA/GC)
[2024-04-15 17:27] LABS: *AMPHETAMINES SCREEN URINE Negative (Negative); *BARBITURATES SCREEN URINE Negative (Negative); *BENZODIAZEPINES SCREEN URINE Negative (Negative); Cannabinoids THC Negative (Negative); Cocaine Screen,Urine Negative (Negative); METHADONE URINE SCREEN Negative (Negative); OPIATES URINE SCREEN Negative (Negative)
[2024-04-15 17:29] LABS: Tricyclic Antidepressants Negative (Negative)
[2024-04-16 12:17] LABS: Chlamydia Result Negative (Negative); GC Result Negative (Negative)
[2024-04-17 11:16] LABS: Fentanyl Scr w/Rfx Confirm Negative ng/mL (<1)
[2024-04-22 12:23] LABS: Buprenorphine Negative ng/mL (Cutoff: 5.0); Norbuprenorphine Negative ng/mL (Cutoff: 2.5)
== END 2024-04-15 14:49 | disposition home or self-care (01) ==
LOC: LBN 14:48
PROVIDERS: PCP Registered Nurse; Visit Provider Advanced Practice Midwife
DX: Z34.91 Encounter for supervision of normal pregnancy, unspecified, first trimester (principal)
CPT/HCPCS: 80307; 80348; 87491; 87591; 88142; 87086

== ENCOUNTER 2024-07-08 04:18 | Outpatient (CLI) | payer MEDICAID, SELFPAY ==
[2024-07-08 16:11] LABS: HCT 36.1 % (36.0-46.0); HGB 11.8 g/dL (11.2-15.7); MCH 30.8 pg (27.0-33.0); MCHC 32.7 % (32.0-36.0); MCV 94 fL (80-95); MPV 8.6 fL (8.0-11.0); Platelet Count 281 10^3/uL (130-400); RBC 3.83 10^6/uL (3.93-5.22); RDW-SD 41.1 fL; WBC 12.19 10^3/uL (4.4-10.8)
[2024-07-08 16:26] LABS: Glucose,1 Hr (Glucola) 80 mg/dL (80-140)
== END 2024-07-08 04:19 | disposition home or self-care (01) ==
LOC: LBO 04:18
PROVIDERS: PCP Registered Nurse; Visit Provider Advanced Practice Midwife
DX: Z34.92 Encounter for supervision of normal pregnancy, unspecified, second trimester (principal)
CPT/HCPCS: 36415; 82950; 85027

== ENCOUNTER 2024-07-08 21:53 | Outpatient (REF) | payer MEDICAID, SELFPAY ==
[2024-07-08 22:00] LABS: *AMPHETAMINES SCREEN URINE Negative (Negative); *BARBITURATES SCREEN URINE Negative (Negative); *BENZODIAZEPINES SCREEN URINE Negative (Negative); Cannabinoids THC Negative (Negative); Cocaine Screen,Urine Negative (Negative); METHADONE URINE SCREEN Negative (Negative); OPIATES URINE SCREEN Negative (Negative)
[2024-07-08 22:01] LABS: Tricyclic Antidepressants Negative (Negative)
[2024-07-10 12:05] LABS: Fentanyl Scr w/Rfx Confirm Negative ng/mL (<1)
[2024-07-16 05:38] LABS: Buprenorphine Negative ng/mL (Cutoff: 5.0); Norbuprenorphine Negative ng/mL (Cutoff: 2.5)
== END 2024-07-08 21:54 | disposition home or self-care (01) ==
LOC: LBN 21:53
PROVIDERS: PCP Registered Nurse; Visit Provider Advanced Practice Midwife
DX: Z34.93 Encounter for supervision of normal pregnancy, unspecified, third trimester (principal); Z3A.27 27 weeks gestation of pregnancy
CPT/HCPCS: 80307; 80348

== ENCOUNTER 2024-07-24 15:37 | Outpatient (REF) | payer MEDICAID, SELFPAY ==
[2024-07-24 17:28] LABS: *AMPHETAMINES SCREEN URINE Negative (Negative); *BARBITURATES SCREEN URINE Negative (Negative); *BENZODIAZEPINES SCREEN URINE Negative (Negative); Cannabinoids THC Negative (Negative); Cocaine Screen,Urine Negative (Negative); METHADONE URINE SCREEN Negative (Negative); OPIATES URINE SCREEN Negative (Negative)
[2024-07-24 17:30] LABS: Tricyclic Antidepressants Negative (Negative)
[2024-07-27 11:19] LABS: Fentanyl Scr w/Rfx Confirm Negative ng/mL (<1)
[2024-07-30 07:12] LABS: Buprenorphine Negative ng/mL (Cutoff: 5.0)
== END 2024-07-24 15:38 | disposition home or self-care (01) ==
LOC: LBN 15:37
PROVIDERS: PCP Registered Nurse; Visit Provider Advanced Practice Midwife
DX: Z34.93 Encounter for supervision of normal pregnancy, unspecified, third trimester (principal)
CPT/HCPCS: 80307; 80348

== ENCOUNTER 2024-08-05 02:21 | Outpatient (CLI) | payer MEDICAID, SELFPAY ==
--- NOTE | 2024-08-05 15:30 | DI.US_ITS ---
Exam(s) US OB LIDIA WEIGHT EXAM: US OB LIDIA WEIGHT CLINICAL HISTORY: 2 vessel cord,Q27.0,z34.90. TECHNIQUE: Transabdominal obstetrical ultrasound performed. COMPARISON: No exams were available for comparison FINDINGS: Number of fetuses: 1 position: CEPHALIC Placental location: There is a grade 1 posterior placenta. No evidence of previa. BIOMETRIC DATA: BPD: 7.73cm, 31weeks HC: 28.41cm, 31weeks 1day AC: 27.57cm, 31weeks 4days FL: 6.16cm, 32weeks EFW: 1,805.86g, 4lb, 44.8% Composite Age: 31weeks 3days JORDEN: 10/04/2024 Heart Rate: Amniotic fluid index: 17.21cm. The largest pocket measures 6.3 cm. Note is made of a 2 vessel umbilical cord. IMPRESSION: 1. Single live intrauterine gestation as above. 2. Estimated weight is 1806gms. This is the 45th percentile. 3. Amniotic fluid index is 17.2 cm. The largest pocket is 6.3 cm. 4. Note is made of a 2 vessel umbilical cord. DATA REPOSITORY:
== END 2024-08-05 02:41 ==
LOC: DI 02:21
PROVIDERS: PCP Registered Nurse; Visit Provider Advanced Practice Midwife
DX: Z34.93 Encounter for supervision of normal pregnancy, unspecified, third trimester (principal); Q27.0 Congenital absence and hypoplasia of umbilical artery; Z3A.29 29 weeks gestation of pregnancy
CPT/HCPCS: 76816

== ENCOUNTER 2024-09-04 15:08 | Outpatient (REF) | payer MEDICAID, SELFPAY | END 2024-09-04 15:09 | disposition home or self-care (01) | LOC: LBN 15:08 | PROVIDERS: PCP Registered Nurse; Visit Provider Advanced Practice Midwife | DX: Z34.93 Encounter for supervision of normal pregnancy, unspecified, third trimester (principal); Z3A.35 35 weeks gestation of pregnancy | CPT/HCPCS: 87081 ==

== ENCOUNTER 2024-10-02 02:57 | Inpatient (IN) | payer MEDICAID, SELFPAY ==
[2024-10-02] VITALS (15 sets, daily range): BP systolic 116–146; BP diastolic 55–92; PULSE 79–111; RESP 16–20; TEMP 36.6–37.3; O2SAT 97–99
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
--- NOTE | 2024-10-02 05:09 | W.PM.OBNL1 ---
Date of service: 10/02/24 Time of Service: 05:09 Pelvic Exam Pooling: Positive Contractions Monitor Mode: None Contraction Frequency(min): q2-4 Contraction Duration(sec): 60 Intensity: Moderate/Strong Fetus A Monitor: Doppler Heart Rate Baseline: 135 Accelerations: Absent Decelerations: None Amniotic Membrane Status: Ruptured Assessment Note: Cat 1 FHT via Doppler Assessment and Plan Assessment and plan (1) Normal labor: Status: Acute Assessment and plan: A: Active Labor SROM 0445 Cat 1 FHT P: Pt requesting tub, anticipated Objective Temp Pulse Resp BP Pulse Ox 98.1 F 93 H 16 116/78 98 10/02/24 03:28 10/02/24 03:28 10/02/24 03:28 10/02/24 03:28 10/02/24 03:28 Subjective Interval history since last seen: Patient up in shower laboring, SROM clear fluid around 0445. FHTs 135 via doppler. Declines SVE. Feeling rectal pressure with ctx
--- NOTE | 2024-10-02 06:09 | OBVDS_ITS ---
Date of service: 10/02/24 Time of Service: 06:09 OB Labor/ Delivery Information Baby A Delivery Delivery Method: Spontaneaous Presentation: Vertex Cephalic Position: Vertex Vertex Position: Left Occipital Anterior Cord Description-Baby A: 2 Vessels Amniotic Fluid: Clear Estimated Blood Loss: 250 Delivery Outcome: Liveborn Complications: none Infant Transferred: Remains with Mother Note: FHTs 135 during first stage of labor. FHTs 140s in second stage. She progressed to full dilation and began pushing in the shower. Moved to bedside with . Second stage huddle was done. Spontaneous delivery of female infant delivered in hands and knees position at side of the bed. Baby was handed to mother between her legs, brought to her chest, dried and stimulated. Spontaneous cry. Cord was clamped and cut by FOB . The placenta delivered spontaneously and appears to by intact with a two vessel cord, trailing membranes noted, teased out with Ring Forceps however small piece remains in vagina and patient declined I retrieve the membranes. I reviewed risk of hemorrage and endometritis with possible need for OR , she continues to decline digital exploration. Pitocin declined unless active bleeding. The perineum was inspected and intact, left labial laceration hemostatic and unrepaired per patient request . The baby did breastfeed. After delivery, Mother and baby and father of the baby were stable and bonding well in the delivery room and there were no complications. Providers Nurse Television Production Clerk: Kenya Abbasi Nurse: Temi Pillai Nurse: Treasure Serna Labor/Delivery Information Number of Babies in Womb: 1 Steroids Given: None Reason Steroids Not Administered: N/A Group Beta Strep: Negative Antibiotics Administered: No Rubella Status: Immune Blood Type: A+ Varicella Immunity: Immune Maternal Complications: None and Other (possible retained products of conception) Shoulder Dystocia: No Stages of Labor Onset of Labor Date: 10/02/24 Onset of Labor Time: 01:20 Complete Dilatation Date: 10/02/24 Complete Dilatation Time: 05:20 Labor - Stage 1 Duration: 4 hours and 0 minutes ROM Baby A: 10/02/24 ROM Baby A: 04:50 ROM Total Time- Baby A: [id number] Delivery Date-Baby A: 10/02/24 Delivery Time-Baby A: 05:35 Labor Stage 2 Duration: 15 minutes Placenta Delivery Date-Baby A: 10/02/24 Placenta Delivery Time-Baby A: 05:49 Labor-Stage 3 Duration: 14 minutes Total Length of Labor-Baby A: 4 hours and 15 minutes Placenta Cultured: No Placenta Status: Delivered Baby A Infant Gender: Female Gestational Status: Term (39-41.6 wks) Gestational Age in Weeks/Days: 39 Weeks and 5 Days Length-Baby A: 20 in Score-1 Minute Interval(Baby A) Heart Rate-1 minute: 100 BPM or Greater Respiratory Effort- 1 minute: Spontaneous/Strong Cry Muscle Tone-1 minute: Active Movement Reflex Response-1 minute: Prompt Response Color-1 minute: Bluish Hands or Feet Total Score-1 minute: 9 Score-5 Minute Interval(Baby A) Heart Rate- 5 minute: 100 BPM or Greater Respiratory Effort-5 minute: Spontaneous/Strong Cry Muscle Tone-5 minute: Active Movement Reflex Response-5 minute: Prompt Response Color-5 minute: Bluish Hands or Feet Total Score- 5 minute: 9
[2024-10-02 07:03] LABS: HGB 10.4 g/dL (11.2-15.7); MCH 26.8 pg (27.0-33.0); MCHC 31.5 % (32.0-36.0); MCV 85 fL (80-95); MPV 9.8 fL (8.0-11.0); Platelet Count 298 10^3/uL (130-400); RBC 3.88 10^6/uL (3.93-5.22); RDW 13.8 % (11.7-14.6); RDW-SD 42.7 fL; WBC 16.39 10^3/uL (4.4-10.8)
[2024-10-02] MEDS: Ibuprofen 600 MG TAB PO (20:16)
[2024-10-02] MEDS: Docusate Sodium 100 MG CAP PO (20:16)
[2024-10-03] VITALS (8 sets, daily range): BP systolic 113–127; BP diastolic 69–85; PULSE 97–126; RESP 16–18; TEMP 36.7–37; O2SAT 96–98
[2024-10-03] MEDS: Docusate Sodium 100 MG CAP PO (07:30)
--- NOTE | 2024-10-03 08:52 | W.PM.OBPNV1 ---
Date of service: 10/03/24 Time of Service: 08:52 Assessment and Plan Assessment and plan (1) Term delivered: Status: Acute Assessment and plan: A: PPD#1, nml recovery, FOB accompanying pt throughout hospital stay with pt consent Satisfied with experience, states she has good supports at home Lives with her sister and her other child, states she is safe Unexpected finding of anti-e antibody on admission labs (infant VERO neg) P: Desires discharge to home today Discussed anti-e antibody status with pt, plan [facility] consult @ future Written instructions reviewed and given to pt; F/up at 2 and 6 wks, plans Paragard IUD after 6 wk check up Subjective Subjective Patient comments: No complaints, Pain well controlled, Tolerating diet and Flatus present Patient's Mood: happy, tired [place] baby status: Doing well, Nursing well, Rooming in and Strong Bonding Observed feeding status: Exclusively breast feeding Exam Physical Exam Vital signs: Temp Pulse Resp BP Pulse Ox 99.1 F 88 16 127/81 99 10/02/24 19:30 10/02/24 19:30 10/02/24 19:30 10/02/24 19:30 10/02/24 19:30 Vital Signs Reviewed: Yes Constitutional Constitutional: no acute distress, average body habitus and cooperative HEENT Exam HEENT Exam: Normal Neck Exam Neck Exam: Normal Breast Exam Bilateral: Breast Exam: Normal and Soft Nipple Exam: Normal and Uninjured Respiratory Exam Respiratory Exam: Normal Cardiovascular Exam Cardiovascular Exam: Normal Abdominal Exam Abdomen: Other (soft, nontender) Fundal Exam Fundus: Below Umbilicus and Firm Rectal Exam Rectal Exam: Normal Exam Perineum: Intact Extremities Exam Extremity Exam: Normal, Full ROM and Warm to Touch Back/Spine/Pelvis Exam Back Exam: Normal Skin Exam Skin Exam: Normal Neurological Exam Neurological Exam: Normal Psychiatric Exam Psychiatric Exam: Normal Results Hemoglobin/Hematocrit: Hgb 10.4 g/dL (11.2-15.7) L 10/02/24 06:50 Hct 33.0 % (36.0-46.0) L 10/02/24 06:50 Abnormal Lab Findings: Abnormal Labs 10/02/24 06:50 WBC 16.39 H RBC 3.88 L Hgb 10.4 L Hct 33.0 L MCH 26.8 L MCHC 31.5 L
--- NOTE | 2024-10-03 10:14 | DSE_ITS ---
Date of service: 10/03/24 Time of Service: 10:14 DS: Diagnosis Discharge Diagnosis (1) Term delivered: Status: Acute Discharge Plan Disposition Patient Disposition: Home Condition: Good Discharge Details Reason For Visit: term labor Admit Date/Time: 10/02/24 02:59 Admit Provider: Kenya Abbasi Attending Provider: Kenya Abbasi [facility] Course: shortly after admission to unit, nml recovery, pt requests discharge on PPD#1 Home Meds and New Rx's Prescriptions: No Action PNV cmb#95-ferrous fumarate-FA 28 mg iron- 800 mcg tablet 1 tab PO DAILY sertraline 50 mg tablet 50 mg PO DAILY Discharge Instructions Additional Instructions: please keep 2 and 6 week appointments with you nuclear physician, call for any and all questions or concerns. Stand Alone Forms: BC Instructions, BC Post Vaginal Deliver Activity:: Activity as Tolerated Equipment/Supplies:: No Equipment Needed Diet:: Normal Diet OB:DS Summary Summary Vaginal Delivery Method: Spontaneaous Episiotomy Description: None Laceration Extension: N/A Contraception Discussed Contraception Discussed: Yes Contraceptive Plan: IUD, Infant Gender-Baby A: Female weight: 8 lb 6.217 oz Status at Discharge Functional status at discharge: independent ambulation Overall status at discharge: patient is progressing back to baseline Mental Status: mental status grossly normal Speech and Movement: speech and movement normal and speech clear Mood: congruent mood Affect: normal affect Quality:SDOH Health Related Social Needs: No Data to Display Exam Physical Exam Vital signs: Temp Pulse Resp BP Pulse Ox 99.1 F 88 16 127/81 99 10/02/24 19:30 10/02/24 19:30 10/02/24 19:30 10/02/24 19:30 10/02/24 19:30 Constitutional Constitutional: no acute distress, average body habitus and cooperative HEENT Exam HEENT Exam: Normal Neck Exam Neck Exam: Normal Breast Exam Bilateral: Breast Exam: Normal and Soft Respiratory Exam Respiratory Exam: Normal Cardiovascular Exam Cardiovascular Exam: Normal Abdominal Exam Abdomen: Other (soft, nontender) Fundal Exam Fundus: Below Umbilicus and Firm Rectal Exam Rectal Exam: Normal Exam Perineum: Intact Extremities Exam Extremity Exam: Normal, Full ROM and Warm to Touch Back/Spine/Pelvis Exam Back Exam: Normal Skin Exam Skin Exam: Normal Neurological Exam Neurological Exam: Normal Psychiatric Exam Psychiatric Exam: Normal PFSH All Active Problems (Updated 10/03/24 @ 08:51 by Ragini Harper) Term delivered (Acute) Lactating mother (Acute) Anxiety (Chronic) Medical History (Updated 10/03/24 @ 08:51 by Ragini Harper) Two vessel umbilical cord Normal labor Family history of transposition of great vessels Social History Smoking/Tobacco Use Status: Never Smoking risk assessment performed?: Yes Alcohol Intake: former Substance use type: does not use Do you feel safe at home: Yes Do you feel safe in your relationship?: Yes History History 2 Para 1 Hx # Term Pregnancies 2 Multiple births 0 Hx # Pregnancies 0 Ectopic pregnancies 0 AB induced 0 Hx Number of Living Children 1 AB spontaneous 0 Past Pregnancies Del. Date GA/Weeks # Preg Succ Route Wgt Sex Labor Lgth Anesth esia Location [facility] 10/12/21 42 No Yes vaginal 8 lb 15.9 oz Male 4-5 hrs [facility] Delivery Date: 10/12/21 Last Updated by: Ragini Gonzales; unmedicated waterbirth, 2nd degree laceration DS: Data Vitals/I&O Vitals and I&O: Vital Signs Temperature 99.1 F 10/02/24 19:30 Temperature Source Forehead 10/02/24 19:30 Pulse 88 10/02/24 19:30 Pulse Rhythm Regular 10/02/24 19:30 Respiratory Rate 16 10/02/24 19:30 Blood Pressure 127/81 10/02/24 19:30 Blood Pressure Mean 96 10/02/24 19:30 Pulse Oximetry 99 10/02/24 19:30 Oxygen Delivery Method Room Air 10/02/24 03:28 Oxygen Flow Rate 0 10/02/24 03:28 Intake & Output 10/02/24 10/02/24 10/03/24 11:59 23:59 11:59 Output Total 300 / 650 350 / 650 Balance -300 / -650 -350 / -650 Weight 215 lb 9.6 oz Output: Urine 300 / 650 350 / 650 Other: Urine Color Yellow Yellow Data Completed and Pending Labs on day of discharge: Labs from last 24 hours 10/02/24 10/02/24 08:43 06:50 Antibody Identification Anti-e Antibody ID Referred Cancelled Antigen Identification e Antigen - NEGATIVE
--- NOTE | 2024-10-03 18:13 | W.PM.OBPNV1 ---
Date of service: 10/03/24 Time of Service: 18:14 Assessment and Plan Assessment and plan (1) Term delivered: Status: Acute (2) Gastroenteritis: Status: Acute Assessment and plan: A: PPD#1, onset of GI viral syndrome symptoms; afebrile, normotensive, benign PE Known sick contacts during past week with various family members P: Cancel discharge home, postpone until tolerating PO intake and diarrhea has resolved Clear liquids as tolerated then slow advance BRAT diet tomorrow morning Pt declines Imodium or Zofran Rx Will check CBC in the morning, IVF if pt is not taking adequate PO hydration or emesis/diarrhea continues Subjective Subjective Patient comments: Other (feeling weak, very tired, emesis after lunch, diarrhea, no appetite) [employer] baby status: Nursing well, Rooming in and Strong Bonding Observed feeding status: Exclusively breast feeding Exam Physical Exam Vital signs: Temp Pulse Resp BP Pulse Ox 98.4 F 97 H 17 123/85 98 10/03/24 17:18 10/03/24 14:30 10/03/24 14:30 10/03/24 14:30 10/03/24 11:00 Vital Signs Reviewed: Yes Constitutional Constitutional: no acute distress, average body habitus and cooperative HEENT Exam HEENT Exam: Normal Neck Exam Neck Exam: Normal Breast Exam Bilateral: Breast Exam: Normal and Soft Respiratory Exam Respiratory Exam: Normal Cardiovascular Exam Cardiovascular Exam: Normal Abdominal Exam Abdomen: Other (soft, nontender) Fundal Exam Fundus: Below Umbilicus and Firm Rectal Exam Rectal Exam: Normal Exam Perineum: Intact Extremities Exam Extremity Exam: Normal, Full ROM and Warm to Touch Back/Spine/Pelvis Exam Back Exam: Normal Skin Exam Skin Exam: Normal Neurological Exam Neurological Exam: Normal Psychiatric Exam Psychiatric Exam: Normal
[2024-10-04 05:00] VITALS: BP 109/69; PULSE 95; TEMP 36.5
[2024-10-04 05:22] LABS: HCT 32.1 % (36.0-46.0); HGB 9.9 g/dL (11.2-15.7); MCH 26.3 pg (27.0-33.0); MCHC 30.8 % (32.0-36.0); MCV 85 fL (80-95); MPV 9.5 fL (8.0-11.0); Platelet Count 257 10^3/uL (130-400); RBC 3.77 10^6/uL (3.93-5.22); RDW 14.3 % (11.7-14.6); RDW-SD 43.8 fL; WBC 7.97 10^3/uL (4.4-10.8)
--- NOTE | 2024-10-04 07:55 | OBPPV_ITS ---
Date of service: 10/04/24 Time of Service: 07:55 Assessment and Plan Assessment and plan (1) Term delivered: Status: Acute (2) Gastroenteritis: Status: Acute Assessment and plan: A: PPD#2, GI symptoms have resolved; afebrile, normotensive, P<100 CBC is nml, WBC <8, hgb 9.9 (mild anemia), pt reports feeling much better P: If tolerates breakfast will discharge to home today Pt instructed to take iron supplement daily Written instructions reviewed and given to pt F/up @ 2 and 6 wks Subjective Subjective Patient comments: Pain well controlled, Tolerating diet and Other (feeling better today, ) Patient's Mood: happy baby status: Doing well, Nursing well, Rooming in and Strong Bonding Observed [place] feeding status: Exclusively breast feeding Exam Physical Exam Vital signs: Temp Pulse Resp BP Pulse Ox 97.7 F 95 H 16 109/69 96 10/04/24 05:00 10/04/24 05:00 10/03/24 23:15 10/04/24 05:00 10/03/24 23:15 Vital Signs Reviewed: Yes Constitutional Constitutional: no acute distress, average body habitus and cooperative HEENT Exam HEENT Exam: Normal Neck Exam Neck Exam: Normal Breast Exam Bilateral: Breast Exam: Normal and Soft Respiratory Exam Respiratory Exam: Normal Cardiovascular Exam Cardiovascular Exam: Normal Abdominal Exam Abdomen: Other (soft, nontender) Fundal Exam Fundus: Below Umbilicus and Firm Rectal Exam Rectal Exam: Normal Exam Perineum: Intact Extremities Exam Extremity Exam: Normal, Full ROM and Warm to Touch Back/Spine/Pelvis Exam Back Exam: Normal Skin Exam Skin Exam: Normal Neurological Exam Neurological Exam: Normal Psychiatric Exam Psychiatric Exam: Normal Results Hemoglobin/Hematocrit: Hgb 9.9 g/dL (11.2-15.7) L 10/04/24 05:18 Hct 32.1 % (36.0-46.0) L 10/04/24 05:18
[2024-10-04 08:37] VITALS: BP 121/90; PULSE 135; RESP 17; TEMP 36.4; O2SAT 98
[2024-10-04 09:45] VITALS: PULSE 95
== END 2024-10-04 12:50 | disposition home or self-care (01) | DRG 807 ==
LOC: NUR 03:22 → OBS 03:22
PROVIDERS: Advanced Practice Midwife; Admitting Provider Advanced Practice Midwife; PCP Registered Nurse; Visit Provider Advanced Practice Midwife
DX: O69.89X0 Labor and delivery complicated by other cord complications, not applicable or unspecified (principal); Z37.0 Single live birth; Z3A.39 39 weeks gestation of pregnancy; O99.344 Other mental disorders complicating childbirth; F41.9 Anxiety disorder, unspecified; O70.0 First degree perineal laceration during delivery; O26.893 Other specified pregnancy related conditions, third trimester
CPT/HCPCS: 36415; 85027; 86850; 86900; 86901; 86870; 86880; 86885; 86902; 86906